=== PATIENT | female | born 1970 | race American Indian/Alaskan Native ===

== ENCOUNTER 2020-03-31 08:50 | Outpatient (CLI) | payer MEDICARE ==
[2020-03-31] MEDS ORDERED: LIDOCAINE (4%) 40 MG/ML TOPICAL SOLN 50 ML BOTTLE TP ONE (09:30)
== END 2020-03-31 08:51 | disposition home or self-care (01) ==
LOC: WOUND 08:50
PROVIDERS: ATTEND Surgery
DX: L03.116 Cellulitis of left lower limb (principal); S81.802A Unspecified open wound, left lower leg, initial encounter; E11.51 Type 2 diabetes mellitus with diabetic peripheral angiopathy without gangrene; G47.30 Sleep apnea, unspecified; I10 Essential (primary) hypertension; Z90.710 Acquired absence of both cervix and uterus; X58.XXXA Exposure to other specified factors, initial encounter; Y93.89 Activity, other specified; Y92.89 Other specified places as the place of occurrence of the external cause; Y99.8 Other external cause status
CPT/HCPCS: 11042; G0463; 99214

== ENCOUNTER 2020-04-07 09:46 | Outpatient (CLI) | payer MEDICARE ==
[2020-04-07] MEDS ORDERED: LIDOCAINE (4%) 40 MG/ML TOPICAL SOLN 50 ML BOTTLE TP ONE (09:48)
== END 2020-04-07 09:47 | disposition home or self-care (01) ==
LOC: WOUND 09:46
PROVIDERS: ATTEND Surgery
DX: L03.116 Cellulitis of left lower limb (principal); S81.802D Unspecified open wound, left lower leg, subsequent encounter; E11.51 Type 2 diabetes mellitus with diabetic peripheral angiopathy without gangrene; G47.30 Sleep apnea, unspecified; I10 Essential (primary) hypertension; Z90.710 Acquired absence of both cervix and uterus; X58.XXXD Exposure to other specified factors, subsequent encounter

== ENCOUNTER 2020-04-23 08:50 | Outpatient (CLI) | payer MEDICARE ==
[2020-04-23] MEDS ORDERED: LIDOCAINE (4%) 40 MG/ML TOPICAL SOLN 50 ML BOTTLE TP ONE (08:58)
== END 2020-04-23 08:51 | disposition home or self-care (01) ==
LOC: WOUND 08:50
PROVIDERS: ATTEND Surgery
DX: L03.116 Cellulitis of left lower limb (principal); E11.51 Type 2 diabetes mellitus with diabetic peripheral angiopathy without gangrene; G47.30 Sleep apnea, unspecified; I10 Essential (primary) hypertension; Z90.710 Acquired absence of both cervix and uterus

== ENCOUNTER 2020-06-09 11:55 | Emergency (ER) | payer MEDICARE ==
--- NOTE | 2020-06-09 13:47 | Emergency Department Report ---
Blank Doc - Documentation Documentation: 49-year-old female that presents with epigastric abdominal pain and CP. HX of cardiac. This initial assessment/diagnostic orders/clinical plan/treatment(s) is/are subject to change based on patient's health status, clinical progression and re- assessment by fellow clinical providers in the ED. Further treatment and workup at subsequent clinical providers discretion. Patient/guardians urged not to elope from the ED as their condition may be serious if not clinically assessed and managed. Initial orders include: 1- Patient sent to MAIN ED for further evaluation and treatment 2- cardiac work up
[2020-06-09 14:26] LABS: Basophils % (Auto) 0.4 % (0.0-1.8); Eosinophils # (Auto) 0.3 K/mm3 (0.0-0.4); Eosinophils % (Auto) 4.4 % (0.0-4.3); Hematocrit 42.6 % (30.3-42.9); Hemoglobin 14.2 gm/dl (10.1-14.3); Lymphocytes % (Auto) 27.7 % (13.4-35.0); Mean Corpuscular HGB Conc 33 % (30-34); Mean Corpuscular Volume 91 fl (79-97); Monocytes # (Auto) 0.7 K/mm3 (0.0-0.8); Monocytes % (Auto) 9.5 % (0.0-7.3); Platelet Count 173 K/mm3 (140-440); Red Blood Count 4.71 M/mm3 (3.65-5.03); Red Cell Distribution Width 14.8 % (13.2-15.2)
[2020-06-09 14:38] LABS: INR 1.23 (0.87-1.13); Partial Thromboplastin Time 28.4 Sec. (24.2-36.6)
[2020-06-09] MEDS ORDERED: ONDANSETRON 4 MG ODT TAB ONE (14:38)
[2020-06-09 14:49] LABS: Alanine Aminotransferase 29 units/L (7-56); Albumin 4.6 g/dL (3.9-5); BUN/Creatinine Ratio 19; Blood Urea Nitrogen 17 mg/dL (7-17); Calcium 9.4 mg/dL (8.4-10.2); Hemolysis Index 6
[2020-06-09] MEDS ORDERED: ONDANSETRON 4 MG/2 ML INJ IV ONE (15:29)
[2020-06-09] MEDS ORDERED: MORPHINE 4 MG/1 ML INJ IV ONE ×2 (15:29→18:44)
[2020-06-09] MEDS ORDERED: SODIUM CHLORIDE 0.9% 1000 ML 1,000 ML IV ONE (15:29)
--- NOTE | 2020-06-09 16:08 | XRay Report ---
CHEST 1 VIEW 06/09/2020 3:01 PM INDICATION / CLINICAL INFORMATION: Chest Pain. COMPARISON: None available. FINDINGS: SUPPORT DEVICES: None. HEART / MEDIASTINUM: No significant abnormality. LUNGS / PLEURA: No significant pulmonary or pleural abnormality. No pneumothorax. ADDITIONAL FINDINGS: No significant additional findings. IMPRESSION: 1. No acute abnormality of the chest. Signer Name: Homero Broussard MD Signed: 06/09/2020 4:03 PM Workstation Name: [id number]
--- NOTE | 2020-06-09 16:24 | Cat Scan Report ---
CT ABDOMEN AND PELVIS WITHOUT CONTRAST HISTORY: rlq ab pain COMPARISON: None. TECHNIQUE: Axial CT images were obtained through the abdomen and pelvis without IV contrast. Sagittal and coronal reformatted images. All CT scans at this location are performed using CT dose reduction for ALARA by means of automated exposure control. FINDINGS: CT ABDOMEN: Lung Bases: Clear. Liver: Moderate diffuse fatty infiltration throughout the liver is noted. No obvious mass. Biliary: No significant abnormality. Spleen: No significant abnormality. Unenlarged. Pancreas: No significant abnormality. Adrenals: No significant abnormality. Kidneys: No significant abnormality. Lymphatics: No lymphadenopathy. Vasculature: No significant abnormality. Bowel/Peritoneum: No significant abnormality. No free air. No free fluid. Normal appendix. CT PELVIS: : Hysterectomy changes. No adnexal abnormality. The bladder and distal ureters are unremarkable. Osseous Structures: No significant abnormality. Additional Findings: None IMPRESSION: No acute process is identified. Hepatic steatosis. Hysterectomy. Signer Name: Epifanio Car Jr, MD Signed: 06/09/2020 4:19 PM Workstation Name: [id number]
--- NOTE | 2020-06-09 17:23 | Emergency Department Report ---
<XIAO BLAKE - Last Filed: 06/09/20 22:00> ED General Adult HPI - General Chief complaint: Abdominal Pain Stated complaint: ABD PAIN Time Seen by Provider: 06/09/20 13:46 - Related Data Home Medications Medication Instructions Recorded Confirmed Last Taken Albuterol Mdi (or & Nicu Only) 2 puff IH QID PRN 03/13/20 03/13/20 Unknown [ProAir HFA Inhaler] Famotidine [Pepcid] 20 mg PO BID 03/13/20 03/13/20 Unknown Fenofibrate [Tricor] 145 mg PO QDAY 03/13/20 03/13/20 Unknown Previous Rx's Medication Instructions Recorded Last Taken Type ARIPiprazole [Abilify TAB] 10 mg PO QPM #30 03/21/20 Unknown Rx ARIPiprazole [Abilify TAB] 15 mg PO QAM #30 03/21/20 Unknown Rx Aspirin 325 mg PO QAM #30 03/21/20 Unknown Rx AtorvaSTATin [Lipitor] 40 mg PO QPM #30 03/21/20 Unknown Rx Baclofen [Lioresal] 10 mg PO BID #60 03/21/20 Unknown Rx Cyclobenzaprine [Flexeril 10 MG 10 mg PO BID #60 03/21/20 Unknown Rx TAB] DULoxetine [Cymbalta] 30 mg PO DAILY #30 cap 03/21/20 Unknown Rx Desvenlafaxine [Desvenlafaxine ER] 50 mg PO DAILY #60 03/21/20 Unknown Rx Dicyclomine [Bentyl] 20 mg PO QID #30 03/21/20 Unknown Rx Doxycycline Hyclate [Doxycycline 100 mg PO Q12HR #14 tab 03/21/20 Unknown Rx Hyclate TAB] Escitalopram [Lexapro] 15 mg PO DAILY #30 03/21/20 Unknown Rx Fluticasone/Salmeterol [Advair 1 puff IH BID #60 03/21/20 Unknown Rx Diskus 250-50 mcg] Furosemide [Lasix TAB] 40 mg PO QDAY #30 03/21/20 Unknown Rx Insulin NPH Human Isophane 55 unit SQ BIDAC 30 Days 03/21/20 Unknown Rx [HumuLIN N Kwikpen] Insulin Regular, Human [HumuLIN R] 50 unit SQ AC 30 Days units 03/21/20 Unknown Rx LORazepam [Ativan] 1 mg PO TID PRN #30 03/21/20 Unknown Rx Losartan [Cozaar] 50 mg PO QDAY #30 03/21/20 Unknown Rx Metformin HCl [metFORMIN] 1,000 mg PO BID #60 03/21/20 Unknown Rx Metoprolol [Lopressor TAB] 75 mg PO BID #60 03/21/20 Unknown Rx Pregabalin 300 mg PO BID #60 capsule 03/21/20 Unknown Rx Pregabalin [Lyrica] 300 mg PO BID #60 cap 03/21/20 Unknown Rx cephALEXin [Keflex] 500 mg PO Q8HR #21 cap 03/21/20 Unknown Rx clonazePAM [KlonoPIN] 0.5 mg PO TID #30 03/21/20 Unknown Rx dilTIAZem [Cardizem] 180 mg PO BID #60 03/21/20 Unknown Rx hydrALAZINE [Apresoline TAB] 100 mg PO Q8HR #90 tab 03/21/20 Unknown Rx oxyCODONE /ACETAMINOPHEN [Percocet 1 tab PO Q6H PRN #12 tablet 03/21/20 Unknown Rx 5/325 mg] Ondansetron [Zofran Odt] 4 mg PO Q8HR PRN #14 tab.rapdis 06/09/20 Unknown Rx traMADoL [Ultram 50 MG tab] 50 mg PO Q4HR PRN #14 tablet 06/09/20 Unknown Rx Allergies Allergy/AdvReac Type Severity Reaction Status Date / Time lisinopril AdvReac Angioedema Verified 03/10/20 13:17 ED Past Medical Hx - Medications Home Medications: Home Medications Medication Instructions Recorded Confirmed Last Taken Type Albuterol Mdi (or & Nicu Only) 2 puff IH QID PRN 03/13/20 03/13/20 Unknown History [ProAir HFA Inhaler] Famotidine [Pepcid] 20 mg PO BID 03/13/20 03/13/20 Unknown History Fenofibrate [Tricor] 145 mg PO QDAY 03/13/20 03/13/20 Unknown History ARIPiprazole [Abilify TAB] 10 mg PO QPM #30 03/21/20 Unknown Rx ARIPiprazole [Abilify TAB] 15 mg PO QAM #30 03/21/20 Unknown Rx Aspirin 325 mg PO QAM #30 03/21/20 Unknown Rx AtorvaSTATin [Lipitor] 40 mg PO QPM #30 03/21/20 Unknown Rx Baclofen [Lioresal] 10 mg PO BID #60 03/21/20 Unknown Rx Cyclobenzaprine [Flexeril 10 MG 10 mg PO BID #60 03/21/20 Unknown Rx TAB] DULoxetine [Cymbalta] 30 mg PO DAILY #30 cap 03/21/20 Unknown Rx Desvenlafaxine [Desvenlafaxine ER] 50 mg PO DAILY #60 03/21/20 Unknown Rx Dicyclomine [Bentyl] 20 mg PO QID #30 03/21/20 Unknown Rx Doxycycline Hyclate [Doxycycline 100 mg PO Q12HR #14 tab 03/21/20 Unknown Rx Hyclate TAB] Escitalopram [Lexapro] 15 mg PO DAILY #30 03/21/20 Unknown Rx Fluticasone/Salmeterol [Advair 1 puff IH BID #60 03/21/20 Unknown Rx Diskus 250-50 mcg] Furosemide [Lasix TAB] 40 mg PO QDAY #30 03/21/20 Unknown Rx Insulin NPH Human Isophane 55 unit SQ BIDAC 30 Days 03/21/20 Unknown Rx [HumuLIN N Kwikpen] Insulin Regular, Human [HumuLIN R] 50 unit SQ AC 30 Days units 03/21/20 Unknown Rx LORazepam [Ativan] 1 mg PO TID PRN #30 03/21/20 Unknown Rx Losartan [Cozaar] 50 mg PO QDAY #30 03/21/20 Unknown Rx Metformin HCl [metFORMIN] 1,000 mg PO BID #60 03/21/20 Unknown Rx Metoprolol [Lopressor TAB] 75 mg PO BID #60 03/21/20 Unknown Rx Pregabalin 300 mg PO BID #60 capsule 03/21/20 Unknown Rx Pregabalin [Lyrica] 300 mg PO BID #60 cap 03/21/20 Unknown Rx cephALEXin [Keflex] 500 mg PO Q8HR #21 cap 03/21/20 Unknown Rx clonazePAM [KlonoPIN] 0.5 mg PO TID #30 03/21/20 Unknown Rx dilTIAZem [Cardizem] 180 mg PO BID #60 03/21/20 Unknown Rx hydrALAZINE [Apresoline TAB] 100 mg PO Q8HR #90 tab 03/21/20 Unknown Rx oxyCODONE /ACETAMINOPHEN [Percocet 1 tab PO Q6H PRN #12 tablet 03/21/20 Unknown Rx 5/325 mg] Ondansetron [Zofran Odt] 4 mg PO Q8HR PRN #14 tab.rapdis 06/09/20 Unknown Rx traMADoL [Ultram 50 MG tab] 50 mg PO Q4HR PRN #14 tablet 06/09/20 Unknown Rx ED Medical Decision Making - Lab Data Result diagrams: 06/09/20 13:52 06/09/20 13:52 - Medical Decision Making Patient remained stable in the emergency room with a stable vital sign. Lactic acid level is down to 2.1. Urinalysis is negative for acute finding. Patient given a tramadol and Zofran and advised to follow-up with her primary care physician in the next 2 to 3 days and to return to the ER if she develop any new symptoms. ED Disposition Clinical Impression: Abdominal pain Disposition: - TO HOME OR SELFCARE Is pt being admited?: No Condition: Stable Instructions: Abdominal Pain (ED) Prescriptions: traMADoL [Ultram 50 MG tab] 50 mg PO Q4HR PRN #14 tablet PRN Reason: Pain Ondansetron [Zofran Odt] 4 mg PO Q8HR PRN #14 tab.rapdis PRN Reason: Nausea And Vomiting Referrals: PRIMARY CARE,MD [Primary Care Provider] - 3-5 Days [facility] [Provider Group] - 3-5 Days [facility] [Provider Group] - 3-5 Days <BENNETT MESA - Last Filed: 06/11/20 17:12> ED General Adult HPI - General Source: EMS Mode of arrival: Ambulatory Limitations: No Limitations - History of Present Illness Initial comments: The patient presents to the emergency department with a chief complaint of abdominal pain with shortness of breath that started on Tuesday. Patient endorses nausea but denies any vomiting or diarrhea. Patient also states she has had a runny nose. Patient denies any chest pain, headache. -: Sudden Location: abdomen Radiation: non-radiation Severity scale (0 -10): 10 Quality: aching Consistency: constant Improves with: none Worsens with: none Associated Symptoms: denies other symptoms Treatments Prior to Arrival: none ED Review of Systems ROS: Stated complaint: ABD PAIN Other details as noted in HPI Comment: All other systems reviewed and negative Constitutional: denies: chills, fever Eyes: denies: eye pain, eye discharge, vision change ENT: denies: ear pain, throat pain Respiratory: denies: cough, shortness of breath, wheezing Cardiovascular: denies: chest pain, palpitations Endocrine: no symptoms reported Gastrointestinal: abdominal pain. denies: nausea, diarrhea Genitourinary: denies: urgency, dysuria, discharge Musculoskeletal: denies: back pain, joint swelling, arthralgia Skin: denies: rash, lesions Neurological: denies: headache, weakness, paresthesias Psychiatric: denies: anxiety, depression Hematological/Lymphatic: denies: easy bleeding, easy bruising ED Past Medical Hx - Past Medical History Previous Medical History?: Yes Hx Hypertension: Yes Hx Congestive Heart Failure: Yes Hx Diabetes: Yes Hx Asthma: No Hx COPD: No Additional medical history: Sleep apnea - Surgical History Past Surgical History?: Yes Additional Surgical History: Hysterectomy, c section, right foot infection - Social History Smoking Status: Never Smoker ED Physical Exam - General Limitations: No Limitations General appearance: alert, in no apparent distress - Head Head exam: Present: atraumatic, normocephalic - Eye Eye exam: Present: normal appearance, PERRL, EOMI - ENT ENT exam: Present: mucous membranes moist - Neck Neck exam: Present: normal inspection - Respiratory Respiratory exam: Present: normal lung sounds bilaterally. Absent: respiratory distress - Cardiovascular Cardiovascular Exam: Present: regular rate, normal rhythm. Absent: systolic murmur, diastolic murmur, rubs, gallop - GI/Abdominal GI/Abdominal exam: Present: soft, tenderness (Diffuse tenderness to palpation), normal bowel sounds. Absent: distended - Extremities Exam Extremities exam: Present: normal inspection - Back Exam Back exam: Present: normal inspection - Neurological Exam Neurological exam: Present: alert, oriented X3, CN II-XII intact. Absent: motor sensory deficit - Psychiatric Psychiatric exam: Present: normal affect, normal mood - Skin Skin exam: Present: warm, dry, intact, normal color. Absent: rash ED Course Vital Signs 06/09/20 06/09/20 06/09/20 12:35 12:56 15:15 Temperature 99.1 F Pulse Rate 115 H 119 H 114 H Respiratory 26 H 26 H Rate Blood Pressure 145/92 Blood Pressure 132/76 [Right] O2 Sat by Pulse 98 98 Oximetry 06/09/20 06/09/20 06/09/20 15:30 15:45 16:06 Temperature Pulse Rate 110 H 115 H Respiratory 15 12 Rate Blood Pressure 144/101 144/101 144/101 Blood Pressure [Right] O2 Sat by Pulse 95 97 97 Oximetry 06/09/20 06/09/20 06/09/20 16:15 16:30 16:45 Temperature Pulse Rate 113 H 108 H 136 H Respiratory 16 14 21 Rate Blood Pressure 154/100 153/81 154/100 Blood Pressure [Right] O2 Sat by Pulse 98 96 97 Oximetry 06/09/20 06/09/20 06/09/20 17:00 17:15 22:24 Temperature 98.0 F Pulse Rate 109 H 106 H 78 Respiratory 20 20 18 Rate Blood Pressure 153/78 153/81 Blood Pressure 139/79 [Right] O2 Sat by Pulse 97 98 96 Oximetry 06/10/20 00:03 Temperature 98.0 F Pulse Rate 78 Respiratory 18 Rate Blood Pressure Blood Pressure 136/78 [Right] O2 Sat by Pulse 98 Oximetry ED Medical Decision Making - Lab Data Result diagrams: 06/09/20 13:52 06/09/20 13:52 - EKG Data -: EKG Interpreted by Wi EKG shows normal: sinus rhythm Rate: tachycardia - EKG Data Interpretation: other (Left bundle branch block) - Medical Decision Making Repeat exam was done on the patient approximately 6:40 PM and the patient still complains of diffuse significant abdominal pain on palpation. It was decided that with the elevated lactic acid and physical exam findings that a CT with IV contrast will be done for evaluation of bowel ischemia Results discussed with patient repeat lactic acid had declined Critical care attestation.: If time is entered above; I have spent that time in minutes in the direct care of this critically ill patient, excluding procedure time. ED Disposition Is pt being admited?: No Does the pt Need Aspirin: No
--- NOTE | 2020-06-09 19:33 | Cat Scan Report ---
CT ABDOMEN AND PELVIS WITH CONTRAST INDICATION: ab pain with elevated lactic acid. TECHNIQUE: Axial CT images were obtained through the abdomen and pelvis after 100 cc Omnipaque [address] scans at this location are performed using CT dose reduction for ALARA by means of automated exposure control. COMPARISON: None available. FINDINGS: LOWER CHEST: No significant abnormality. LIVER: Moderate decreased attenuation is seen throughout the liver which is enlarged characteristic f or steatosis. Liver measures 21.7 cm in length. GALLBLADDER: No significant abnormality. BILE DUCTS: No significant abnormality. PANCREAS: No significant abnormality. SPLEEN: No significant abnormality. ADRENALS: No significant abnormality. RIGHT KIDNEY and URETER: Small simple 1 cm right renal cyst. LEFT KIDNEY and URETER: No significant abnormality. STOMACH and SMALL BOWEL: No significant abnormality. COLON: No significant abnormality. APPENDIX: No significant abnormality. PERITONEUM: No free fluid. No free air. No fluid collection. LYMPH NODES: No significant adenopathy. AORTA and ARTERIES: No significant abnormality. IVC and VEINS: No significant abnormality. URINARY BLADDER: No significant abnormality. REPRODUCTIVE ORGANS: Surgically absent. ADDITIONAL FINDINGS: None. SKELETAL SYSTEM: Mild to moderate facet degenerative disease lower lumbar spine. IMPRESSION: 1. No acute inflammatory process or bowel obstruction. 2. Moderate hepatomegaly and steatosis. Signer Name: Zain Oquendo MD Signed: 06/09/2020 7:29 PM Workstation Name: [id number]
[2020-06-09 20:00] LABS: Bilirubin,Urine NEG (Negative); Blood,Urine NEG (Negative); Color,Urine Yellow (Yellow); Mucus,Urine FEW /HPF; Urobilinogen,Urine < 2.0 mg/dL (<2.0)
[2020-06-10 00:03] VITALS: BP 136/78
== END 2020-06-10 00:04 | disposition home or self-care (01) ==
LOC: ED 11:55
DX: R10.9 Unspecified abdominal pain (principal); R06.02 Shortness of breath; I11.0 Hypertensive heart disease with heart failure; I50.9 Heart failure, unspecified; E11.9 Type 2 diabetes mellitus without complications; Z79.82 Long term (current) use of aspirin; Z79.4 Long term (current) use of insulin; Z79.899 Other long term (current) drug therapy
CPT/HCPCS: 36415; 71045; 74176; 74177; 80053; 81001; 82140; 83690; 84484; 84703; 85025; 85610; 85730; 87040; 93005; 96374; 96375; 96376; 99285; J2270; J2405; J7030; Q9967; Q0162

== ENCOUNTER 2020-07-09 09:43 | Emergency (ER) | payer MEDICARE ==
[2020-07-09] MEDS ORDERED: ASPIRIN 81 MG TAB CHEW PO ONE (10:51)
[2020-07-09] MEDS ORDERED: MORPHINE 4 MG/1 ML INJ IV ONE (10:52)
[2020-07-09] MEDS ORDERED: ONDANSETRON 4 MG/2 ML INJ IV ONE ×2 (10:52→13:28)
--- NOTE | 2020-07-09 10:56 | Emergency Department Report ---
ED Chest Pain HPI - General Stated Complaint: CHEST PAIN/SHORTNESS OF BREATH Time Seen by Provider: 07/09/20 10:20 Source: patient - History of Present Illness Initial Comments: Patient is 50 years old female with history of congestive heart failure, obstructive sleep apnea and hypertension. Patient brought to the emergency room via EMS from home for evaluation of chest pain, shortness of breath, nausea and vomiting. Patient stated that symptoms started 2 days ago. Patient stated that she is unable to keep anything down. Patient also stated that she has been having fever and chills. No diarrhea. MD Complaint: chest pain -: days(s) Onset: during rest Pain Location: left chest Consistency: constant re: nausea, vomting - Related Data Home Medications Medication Instructions Recorded Confirmed Last Taken Albuterol Mdi (or & Nicu Only) 2 puff IH QID PRN 03/13/20 03/13/20 Unknown [ProAir HFA Inhaler] Famotidine [Pepcid] 20 mg PO BID 03/13/20 03/13/20 Unknown Fenofibrate [Tricor] 145 mg PO QDAY 03/13/20 03/13/20 Unknown Previous Rx's Medication Instructions Recorded Last Taken Type ARIPiprazole [Abilify TAB] 10 mg PO QPM #30 03/21/20 Unknown Rx ARIPiprazole [Abilify TAB] 15 mg PO QAM #30 03/21/20 Unknown Rx Aspirin 325 mg PO QAM #30 03/21/20 Unknown Rx AtorvaSTATin [Lipitor] 40 mg PO QPM #30 03/21/20 Unknown Rx Baclofen [Lioresal] 10 mg PO BID #60 03/21/20 Unknown Rx Cyclobenzaprine [Flexeril 10 MG 10 mg PO BID #60 03/21/20 Unknown Rx TAB] DULoxetine [Cymbalta] 30 mg PO DAILY #30 cap 03/21/20 Unknown Rx Desvenlafaxine [Desvenlafaxine ER] 50 mg PO DAILY #60 03/21/20 Unknown Rx Dicyclomine [Bentyl] 20 mg PO QID #30 03/21/20 Unknown Rx Doxycycline Hyclate [Doxycycline 100 mg PO Q12HR #14 tab 03/21/20 Unknown Rx Hyclate TAB] Escitalopram [Lexapro] 15 mg PO DAILY #30 03/21/20 Unknown Rx Fluticasone/Salmeterol [Advair 1 puff IH BID #60 03/21/20 Unknown Rx Diskus 250-50 mcg] Furosemide [Lasix TAB] 40 mg PO QDAY #30 03/21/20 Unknown Rx Insulin NPH Human Isophane 55 unit SQ BIDAC 30 Days 03/21/20 Unknown Rx [HumuLIN N Kwikpen] Insulin Regular, Human [HumuLIN R] 50 unit SQ AC 30 Days units 03/21/20 Unknown Rx LORazepam [Ativan] 1 mg PO TID PRN #30 03/21/20 Unknown Rx Losartan [Cozaar] 50 mg PO QDAY #30 03/21/20 Unknown Rx Metformin HCl [metFORMIN] 1,000 mg PO BID #60 03/21/20 Unknown Rx Metoprolol [Lopressor TAB] 75 mg PO BID #60 03/21/20 Unknown Rx Pregabalin 300 mg PO BID #60 capsule 03/21/20 Unknown Rx Pregabalin [Lyrica] 300 mg PO BID #60 cap 03/21/20 Unknown Rx cephALEXin [Keflex] 500 mg PO Q8HR #21 cap 03/21/20 Unknown Rx clonazePAM [KlonoPIN] 0.5 mg PO TID #30 03/21/20 Unknown Rx dilTIAZem [Cardizem] 180 mg PO BID #60 03/21/20 Unknown Rx hydrALAZINE [Apresoline TAB] 100 mg PO Q8HR #90 tab 03/21/20 Unknown Rx oxyCODONE /ACETAMINOPHEN [Percocet 1 tab PO Q6H PRN #12 tablet 03/21/20 Unknown Rx 5/325 mg] Ondansetron [Zofran Odt] 4 mg PO Q8HR PRN #14 tab.rapdis 06/09/20 Unknown Rx traMADoL [Ultram 50 MG tab] 50 mg PO Q4HR PRN #14 tablet 06/09/20 Unknown Rx Allergies Allergy/AdvReac Type Severity Reaction Status Date / Time lisinopril AdvReac Angioedema Verified 03/10/20 13:17 Heart Score - HEART Score History: Moderately suspicious EKG: Non-specific Age: 45-65 Risk factors: > 3 risk factors or hx of atherosclerotic disease Troponin: < normal limit HEART Score: 5 - Critical Actions Critical Actions: 4-6 pts:12-16.6% risk of adverse cardiac event. Should be admitted ED Review of Systems ROS: Stated complaint: CHEST PAIN/SHORTNESS OF BREATH Other details as noted in HPI Comment: All other systems reviewed and negative Constitutional: chills, fever Respiratory: cough, orthopnea, shortness of breath, SOB with exertion, SOB at rest. denies: wheezing Cardiovascular: chest pain. denies: palpitations Gastrointestinal: nausea, vomiting. denies: abdominal pain, diarrhea, constipation, hematemesis, melena, hematochezia Musculoskeletal: denies: back pain Neurological: denies: headache, weakness, numbness, paresthesias, confusion ED Past Medical Hx - Past Medical History Hx Hypertension: Yes Hx Congestive Heart Failure: Yes Hx Diabetes: Yes Hx Asthma: No Hx COPD: No Additional medical history: Sleep apnea - Surgical History Additional Surgical History: Hysterectomy, c section, right foot infection - Social History Smoking Status: Never Smoker - Medications Home Medications: Home Medications Medication Instructions Recorded Confirmed Last Taken Type Albuterol Mdi (or & Nicu Only) 2 puff IH QID PRN 03/13/20 03/13/20 Unknown History [ProAir HFA Inhaler] Famotidine [Pepcid] 20 mg PO BID 03/13/20 03/13/20 Unknown History Fenofibrate [Tricor] 145 mg PO QDAY 03/13/20 03/13/20 Unknown History ARIPiprazole [Abilify TAB] 10 mg PO QPM #30 03/21/20 Unknown Rx ARIPiprazole [Abilify TAB] 15 mg PO QAM #30 03/21/20 Unknown Rx Aspirin 325 mg PO QAM #30 03/21/20 Unknown Rx AtorvaSTATin [Lipitor] 40 mg PO QPM #30 03/21/20 Unknown Rx Baclofen [Lioresal] 10 mg PO BID #60 03/21/20 Unknown Rx Cyclobenzaprine [Flexeril 10 MG 10 mg PO BID #60 03/21/20 Unknown Rx TAB] DULoxetine [Cymbalta] 30 mg PO DAILY #30 cap 03/21/20 Unknown Rx Desvenlafaxine [Desvenlafaxine ER] 50 mg PO DAILY #60 03/21/20 Unknown Rx Dicyclomine [Bentyl] 20 mg PO QID #30 03/21/20 Unknown Rx Doxycycline Hyclate [Doxycycline 100 mg PO Q12HR #14 tab 03/21/20 Unknown Rx Hyclate TAB] Escitalopram [Lexapro] 15 mg PO DAILY #30 03/21/20 Unknown Rx Fluticasone/Salmeterol [Advair 1 puff IH BID #60 03/21/20 Unknown Rx Diskus 250-50 mcg] Furosemide [Lasix TAB] 40 mg PO QDAY #30 03/21/20 Unknown Rx Insulin NPH Human Isophane 55 unit SQ BIDAC 30 Days 03/21/20 Unknown Rx [HumuLIN N Kwikpen] Insulin Regular, Human [HumuLIN R] 50 unit SQ AC 30 Days units 03/21/20 Unknown Rx LORazepam [Ativan] 1 mg PO TID PRN #30 03/21/20 Unknown Rx Losartan [Cozaar] 50 mg PO QDAY #30 03/21/20 Unknown Rx Metformin HCl [metFORMIN] 1,000 mg PO BID #60 03/21/20 Unknown Rx Metoprolol [Lopressor TAB] 75 mg PO BID #60 03/21/20 Unknown Rx Pregabalin 300 mg PO BID #60 capsule 03/21/20 Unknown Rx Pregabalin [Lyrica] 300 mg PO BID #60 cap 03/21/20 Unknown Rx cephALEXin [Keflex] 500 mg PO Q8HR #21 cap 03/21/20 Unknown Rx clonazePAM [KlonoPIN] 0.5 mg PO TID #30 03/21/20 Unknown Rx dilTIAZem [Cardizem] 180 mg PO BID #60 03/21/20 Unknown Rx hydrALAZINE [Apresoline TAB] 100 mg PO Q8HR #90 tab 03/21/20 Unknown Rx oxyCODONE /ACETAMINOPHEN [Percocet 1 tab PO Q6H PRN #12 tablet 03/21/20 Unknown Rx 5/325 mg] Ondansetron [Zofran Odt] 4 mg PO Q8HR PRN #14 tab.rapdis 06/09/20 Unknown Rx traMADoL [Ultram 50 MG tab] 50 mg PO Q4HR PRN #14 tablet 06/09/20 Unknown Rx ED Physical Exam - General General appearance: alert, in distress - Head Head exam: Present: atraumatic, normocephalic, normal inspection - Eye Eye exam: Present: normal appearance - ENT ENT exam: Present: normal exam, normal orophraynx, mucous membranes moist - Neck Neck exam: Present: normal inspection, full ROM. Absent: tenderness, meningismus, lymphadenopathy, thyromegaly - Respiratory Respiratory exam: Present: normal lung sounds bilaterally - Cardiovascular Cardiovascular Exam: Present: regular rate, normal rhythm, normal heart sounds - GI/Abdominal GI/Abdominal exam: Present: soft, normal bowel sounds. Absent: distended, tenderness, guarding, rebound, rigid, organomegaly, mass, bruit, pulsatile mass, hernia - Extremities Exam Extremities exam: Present: normal inspection, full ROM, normal capillary refill, pedal edema. Absent: calf tenderness - Back Exam Back exam: Present: normal inspection, full ROM. Absent: CVA tenderness (R), CVA tenderness (L) - Neurological Exam Neurological exam: Present: alert, oriented X3, CN II-XII intact - Psychiatric Psychiatric exam: Present: normal mood - Skin Skin exam: Present: warm, dry, intact, normal color ED Course Vital Signs 07/09/20 07/09/20 07/09/20 11:12 11:15 11:30 Temperature 98.6 F Pulse Rate 114 H 114 H 113 H Respiratory 12 25 H 16 Rate Blood Pressure 170/108 170/108 Blood Pressure 170/118 [Right] O2 Sat by Pulse 97 96 95 Oximetry 07/09/20 07/09/20 07/09/20 11:45 11:50 12:01 Temperature Pulse Rate 111 H 112 H Respiratory 14 18 29 H Rate Blood Pressure 170/108 195/124 Blood Pressure [Right] O2 Sat by Pulse 98 94 Oximetry 07/09/20 07/09/20 07/09/20 12:15 12:31 12:45 Temperature Pulse Rate 113 H 113 H 111 H Respiratory 24 23 17 Rate Blood Pressure 170/108 170/108 195/124 Blood Pressure [Right] O2 Sat by Pulse 96 98 98 Oximetry 07/09/20 07/09/20 07/09/20 13:00 13:15 13:31 Temperature Pulse Rate 111 H 109 H Respiratory 17 26 H Rate Blood Pressure 167/106 167/106 167/106 Blood Pressure [Right] O2 Sat by Pulse 95 94 Oximetry 07/09/20 07/09/20 07/09/20 13:34 13:45 14:01 Temperature Pulse Rate 108 H 114 H Respiratory 18 26 H 20 Rate Blood Pressure 167/106 167/106 Blood Pressure [Right] O2 Sat by Pulse 97 94 Oximetry 07/09/20 07/09/20 07/09/20 14:15 14:31 14:45 Temperature Pulse Rate 109 H 107 H Respiratory 21 20 13 Rate Blood Pressure 167/106 167/106 167/106 Blood Pressure [Right] O2 Sat by Pulse 99 99 98 Oximetry ED Medical Decision Making - Lab Data Result diagrams: 07/09/20 11:10 07/09/20 11:10 - EKG Data -: EKG Interpreted by [facility] EKG shows normal: sinus rhythm Rate: normal - EKG Data Interpretation: no acute changes - Radiology Data Radiology results: report reviewed - Medical Decision Making Patient is 50 years old female with history of congestive heart failure, obstructive sleep apnea and hypertension. Patient brought to the emergency room via EMS from home for evaluation of chest pain, shortness of breath, nausea and vomiting. Patient stated that symptoms started 2 days ago. Patient stated that she is unable to keep anything down. Patient also stated that she has been having fever and chills. No diarrhea. EKG showed no ST elevation. Chest x-ray is unremarkable except for cardiomegaly. 3 sets of troponin is negative. CT abdomen pelvis is unremarkable. Patient received morphine, Zofran and Reglan. Patient stated that she is feeling much better and she is ready to go home. Patient is chest pain-free. Patient advised to follow-up with her primary care physician in the next 2 to 3 days and to return to the ER if she develop any new symptoms. Critical care attestation.: If time is entered above; I have spent that time in minutes in the direct care of this critically ill patient, excluding procedure time. ED Disposition Clinical Impression: Chest pain, Abdominal pain, Nausea and vomiting Disposition: DC-01 TO HOME OR SELFCARE Is pt being admited?: No Condition: Stable Instructions: Chest Pain (ED), Abdominal Pain (ED) Referrals: JOHN FREEMAN [Other] - 3-5 Days
[2020-07-09 11:45] LABS: Basophils % (Auto) 0.4 % (0.0-1.8); Eosinophils # (Auto) 0.2 K/mm3 (0.0-0.4); Hematocrit 39.7 % (30.3-42.9); Hemoglobin 13.6 gm/dl (10.1-14.3); Lymphocytes # (Auto) 1.5 K/mm3 (1.2-5.4); Lymphocytes % (Auto) 14.2 % (13.4-35.0); Mean Corpuscular HGB Conc 34 % (30-34); Mean Corpuscular Volume 90 fl (79-97); Monocytes # (Auto) 0.9 K/mm3 (0.0-0.8); Monocytes % (Auto) 9.1 % (0.0-7.3); Platelet Count 204 K/mm3 (140-440); Red Blood Count 4.41 M/mm3 (3.65-5.03); Red Cell Distribution Width 15.1 % (13.2-15.2)
--- NOTE | 2020-07-09 11:48 | XRay Report ---
CHEST 1 VIEW INDICATION: Chest Pain. COMPARISON: 06/09/2020 FINDINGS: Support devices: None. Heart: Mild cardiomegaly is suspected. Lungs/Pleura: No acute air space or interstitial disease. No pleural effusion or pneumothorax. Additional findings: None. IMPRESSION: Mild cardiomegaly. Lungs clear. Signer Name: Epifanio Car Jr, MD Signed: 07/09/2020 11:43 AM Workstation Name: [id number]
[2020-07-09 11:52] LABS: INR 1.29 (0.87-1.13)
[2020-07-09 12:00] LABS: BUN/Creatinine Ratio 15; Blood Urea Nitrogen 12 mg/dL (7-17); Hemolysis Index 2
[2020-07-09 12:02] LABS: Alanine Aminotransferase 26 units/L (7-56)
[2020-07-09 12:10] LABS: Bilirubin,Direct < 0.2 mg/dL (0-0.2)
[2020-07-09 13:21] LABS: Bilirubin,Urine NEG (Negative); Blood,Urine NEG (Negative); Color,Urine Yellow (Yellow); Mucus,Urine FEW /HPF; Urobilinogen,Urine < 2.0 mg/dL (<2.0)
[2020-07-09] MEDS ORDERED: MORPHINE 4 MG/1 ML INJ IM ONE (13:27)
[2020-07-09] MEDS ORDERED: MORPHINE 2 MG/1 ML INJ ONE (14:01)
--- NOTE | 2020-07-09 14:27 | Cat Scan Report ---
CT ABDOMEN AND PELVIS WITH CONTRAST HISTORY: Abdominal pain COMPARISON: 06/09/2020 TECHNIQUE: Axial CT images were obtained through the abdomen and pelvis after 100 cc of Omnipaque 300 intravenously. Sagittal and coronal reformatted images. All CT scans at this location are performed using CT dose reduction for ALARA by means of automated exposure control. FINDINGS: CT ABDOMEN: Lung Bases: Clear. Liver: Moderate diffuse fatty infiltration throughout the liver is unchanged. Biliary: No significant abnormality. Spleen: No significant abnormality. Unenlarged. Pancreas: No significant abnormality. Adrenals: No significant abnormality. Kidneys: No significant abnormality. Lymphatics: No lymphadenopathy. Vasculature: No significant abnormality. Bowel/Peritoneum: No significant abnormality. No free air. No free fluid. Normal appendix. CT PELVIS: : Hysterectomy. The bladder, distal ureters and adnexa are unremarkable. Osseous Structures: No significant abnormality. Additional Findings: None IMPRESSION: No acute inflammatory process is identified. Moderate hepatic steatosis. Hysterectomy. No acute change since 06/09/2020. Signer Name: Epifanio Car Jr, MD Signed: 07/09/2020 2:23 PM Workstation Name: [id number]
[2020-07-09 14:51] VITALS: BP 167/106
[2020-07-09] MEDS ORDERED: METOCLOPRAMIDE 10 MG/2 ML INJ IV ONE (15:54)
== END 2020-07-09 19:47 | disposition home or self-care (01) ==
LOC: ED 09:43
DX: R07.89 Other chest pain (principal); R11.2 Nausea with vomiting, unspecified; R10.9 Unspecified abdominal pain; R06.02 Shortness of breath; I50.9 Heart failure, unspecified; I11.0 Hypertensive heart disease with heart failure; E11.9 Type 2 diabetes mellitus without complications; Z90.710 Acquired absence of both cervix and uterus; Z98.890 Other specified postprocedural states; Z79.4 Long term (current) use of insulin; Z79.899 Other long term (current) drug therapy; Z88.8 Allergy status to other drugs, medicaments and biological substances
CPT/HCPCS: 36415; 71045; 74177; 80048; 80076; 81001; 83690; 83880; 84484; 85025; 85610; 85730; 93005; 96372; 96374; 96375; 96376; 99285; J2270; J2405; J2765; Q9967